=== PATIENT | female | born 1940 | race Caucasian/White ===

== ENCOUNTER 2021-08-29 10:40 | Inpatient (IN) | payer BC, MEDICARE ==
[~2021-08-29] VITALS: Ht 157.5 cm; Wt 59.0 kg
[2021-08-29] MEDS ORDERED: LEVOFLOXACIN 750MG PREMIX 150 ML IV ONE (11:15)
[2021-08-29 11:32] LABS: BASOPHILS % 0.6 % (0.0-2.0); EOSINOPHILS % 0.2 % (0.0-5.0); HEMATOCRIT. 31.4 % (36.0-48.0); HEMOGLOBIN. 10.1 g/dL (12.0-16.0); LYMPHOCYTES % 7.4 % (20.0-50.0); MEAN CORPUSCULAR VOLUME 74.7 fL (81.0-99.0); MEAN PLATELET VOLUME 9.3 fl (7.4-10.4); MONOCYTES % 5.8 % (2.0-8.0); PLATELET 372 x1000/uL (130-400); RED BLOOD CELL COUNT 4.21 mill/uL (4.2-5.4); RED CELL DISTRIBUTION WIDTH 18.7 % (11.6-14.6)
[2021-08-29 11:40] LABS: CHLORIDE 109 mEq/L (98-107)
[2021-08-29 12:00] LABS: BG BASE EXCESS -3.4 mmol/L (-2.0-2.0); BG CARBOXYHEMOGLOBIN 0.2 % (0.5-1.5); BG DEOXYHEMOGLOBIN 9.3 % (0.0-5.0); BG HCO3 ACT 20.7 mmol/L (22.0-26.0); BG METHEMOGLOBIN 0.1 % (0.0-1.5); BG OXYGEN SATURATION 90.7 % (92.0-98.5); BG OXYHEMOGLOBIN 90.4 % (94.0-97.0); BG PCO2 33.9 mmHg (35.0-45.0); BG PH 7.404 (7.350-7.450); BG PO2 66.2 mmHg (75.0-100.0); BG SAMPLE SITE RIGHT BRACHIAL; BG TOTAL HEMOGLOBIN 11.3 g/dL (12.0-18.0); BG VENT MODE MASK - NRB
[2021-08-29] MEDS ORDERED: POTASSIUM CHLORIDE INJ 40 MEQ in DEXT 5% WATER 250 ML IV SCH (14:00)
[2021-08-29] MEDS ORDERED: DEXTROSE 50% WATER 50ML SYRINGE IV PRN (16:30)
[2021-08-29] MEDS ORDERED: DIPHENHYDRAMINE 50MG/ML VIAL IV PRN ×2 (16:30)
[2021-08-29] MEDS ORDERED: IPRATROPIUM/ALBUTEROL 0.5-3(2.5)MG/3ML NEB NEB PRN (16:30)
[2021-08-29] MEDS ORDERED: ONDANSETRON HCL 4MG/2ML INJ IV PRN ×2 (16:30)
[2021-08-29] MEDS ORDERED: ACETAMINOPHEN 650MG SUPP PR PRN (16:30)
[2021-08-29] MEDS ORDERED: DEXT 5%/0.45% NACL 1000ML 1,000 ML IV SCH (16:30)
[2021-08-29] MEDS ORDERED: DEXT 5%/0.45% NACL KCL 40MEQ/L 1,000 ML IV SCH (17:00)
[2021-08-29] MEDS ORDERED: ENOXAPARIN 40MG/0.4ML SYR SUBCUT SCH (17:00)
[2021-08-29] MEDS: BLOOD SUGAR DIAGNOSTIC STRIP TEST SCH ×2 (17:00→20:50)
[2021-08-29] MEDS ORDERED: KCL 20MEQ/100ML PREMIX 100 ML IV SCH (17:00)
[2021-08-29] MEDS: INSULIN LISPRO 100 UNITS/ML SUBCUT SCH ×2 (18:20→21:00)
[2021-08-29 19:18] VITALS: BP 134/53
[2021-08-29] MEDS: KCL 20MEQ/100ML X 2 FOR TOTAL KCL 40MEQ/200ML IV SCH ×2 (19:30→20:47)
[2021-08-29 20:00] VITALS: BP 134/53
[2021-08-29] MEDS ORDERED: PNEUMOCOCCAL 23-VAL P-SAC VAC 0.5 ML IM ONE (20:45)
[2021-08-29] MEDS ORDERED: INFLUENZA VACCINE 05/PF 0.5 ML SYRINGE IM ONE (20:45)
[2021-08-30] VITALS: BP 104/62
[2021-08-30] MEDS ORDERED: APIX5TAB PO (00:31)
[2021-08-30] MEDS ORDERED: ESCI5SOL2 PO (00:34)
[2021-08-30] MEDS ORDERED: PENT400T16 MT (00:40)
[2021-08-30] MEDS ORDERED: METF-414 MT (00:40)
[2021-08-30] MEDS ORDERED: TRAZ-251 PO (00:40)
[2021-08-30] MEDS ORDERED: ALBU18HF2 IH (00:46)
[2021-08-30] MEDS: DEXT 5%/0.45% NACL KCL 40MEQ/L 1,000 ML IV SCH ×2 (03:25→20:47)
[2021-08-30] MEDS: BLOOD SUGAR DIAGNOSTIC STRIP TEST SCH ×4 (06:41→20:14)
[2021-08-30] MEDS: INSULIN LISPRO 100 UNITS/ML SUBCUT SCH ×4 (06:41→20:14)
[2021-08-30 07:01] LABS: BASOPHILS % 0.3 % (0.0-2.0); EOSINOPHILS % 0.4 % (0.0-5.0); HEMATOCRIT. 28.7 % (36.0-48.0); HEMOGLOBIN. 9.2 g/dL (12.0-16.0); LYMPHOCYTES % 8.1 % (20.0-50.0); MEAN CORPUSCULAR VOLUME 75.1 fL (81.0-99.0); MEAN PLATELET VOLUME 9.3 fl (7.4-10.4); MONOCYTES % 7.8 % (2.0-8.0); NEUTROPHILS % 83.4 % (40.0-76.0); PLATELET 298 x1000/uL (130-400); RED BLOOD CELL COUNT 3.83 mill/uL (4.2-5.4); RED CELL DISTRIBUTION WIDTH 18.5 % (11.6-14.6)
[2021-08-30 08:00] VITALS: BP 91/47
[2021-08-30 12:00] VITALS: BP 100/56
[2021-08-30 16:00] VITALS: BP 105/54
[2021-08-30] MEDS ORDERED: ENOXAPARIN 30MG/0.3ML SYR SUBCUT SCH (17:00)
[2021-08-30] MEDS ORDERED: LEVE500T98 MT (17:31)
[2021-08-30 20:00] VITALS: BP 125/61
[2021-08-30] MEDS ORDERED: ENOXAPARIN 60MG/0.6ML SYR SUBCUT SCH (20:00)
[2021-08-30] MEDS: DILTIAZEM HCL 5MG/ML 5ML VIAL IV PRN (20:33)
[2021-08-30] MEDS: LEVETIRACETAM 500MG PREMIX 100 ML IV SCH (20:37)
[2021-08-30] MEDS ORDERED: DIGOXIN 500MCG/2ML AMP IV NR ×2 (21:30→22:00)
[2021-08-30] MEDS ORDERED: METO100T16 PO (21:32)
[2021-08-30] MEDS ORDERED: METO100T16 MT (21:32)
[2021-08-30] MEDS: IPRATROPIUM/ALBUTEROL 0.5-3(2.5)MG/3ML NEB HHN SCH (21:40)
[2021-08-31] VITALS (7 sets, daily range): BP systolic 89–130; BP diastolic 58–74
[2021-08-31] MEDS: IPRATROPIUM/ALBUTEROL 0.5-3(2.5)MG/3ML NEB HHN SCH ×4 (02:45→21:20)
[2021-08-31] MEDS: BLOOD SUGAR DIAGNOSTIC STRIP TEST SCH ×4 (06:03→20:17)
[2021-08-31] MEDS: INSULIN LISPRO 100 UNITS/ML SUBCUT SCH ×4 (06:13→20:17)
[2021-08-31] MEDS: LEVETIRACETAM 500MG PREMIX 100 ML IV SCH ×2 (08:37→20:16)
[2021-08-31] MEDS: LEVOFLOXACIN 750MG PREMIX 150 ML IV SCH (15:48)
[2021-08-31] MEDS ORDERED: NALOXONE HCL 0.4MG/ML VIAL IV PRN (16:00)
[2021-08-31] MEDS ORDERED: DILTIAZEM HCL 60MG TABLET PO SCH (18:00)
[2021-08-31] MEDS: DEXT 5%/0.45% NACL KCL 40MEQ/L 1,000 ML IV SCH (18:39)
[2021-08-31] MEDS: DILTIAZEM HCL 5MG/ML 5ML VIAL IV SCH (18:41)
[2021-08-31] MEDS: ENOXAPARIN 60MG/0.6ML SYR SUBCUT SCH (20:16)
[2021-08-31] MEDS: DILTIAZEM HCL 5MG/ML 5ML VIAL IV PRN (22:54)
[2021-09-01] VITALS: BP 128/48
[2021-09-01] MEDS: IPRATROPIUM/ALBUTEROL 0.5-3(2.5)MG/3ML NEB HHN SCH ×4 (00:53→21:10)
[2021-09-01 04:00] VITALS: BP 139/77
[2021-09-01] MEDS: DILTIAZEM HCL 5MG/ML 5ML VIAL IV SCH ×4 (05:20→17:57)
[2021-09-01] MEDS: INSULIN LISPRO 100 UNITS/ML SUBCUT SCH ×4 (06:16→21:00)
[2021-09-01] MEDS: BLOOD SUGAR DIAGNOSTIC STRIP TEST SCH ×4 (06:16→21:23)
[2021-09-01 06:29] LABS: HEMATOCRIT. 27.9 % (36.0-48.0); HEMOGLOBIN. 8.9 g/dL (12.0-16.0); MEAN CORPUSCULAR HEMOGLOBIN 24.3 pg (28.0-32.0); MEAN CORPUSCULAR VOLUME 76.3 fL (81.0-99.0); MEAN PLATELET VOLUME 9.7 fl (7.4-10.4); PLATELET 325 x1000/uL (130-400); RED BLOOD CELL COUNT 3.65 mill/uL (4.2-5.4); RED CELL DISTRIBUTION WIDTH 18.8 % (11.6-14.6)
[2021-09-01 08:00] VITALS: BP 101/59
[2021-09-01] MEDS: LEVETIRACETAM 500MG PREMIX 100 ML IV SCH ×2 (08:50→21:24)
[2021-09-01] MEDS ORDERED: MAGNESIUM 1 G PREMIX 100 ML IV NR (10:30)
[2021-09-01 12:00] VITALS: BP 148/82
[2021-09-01 14:28] LABS: PLATELET ESTIMATE NORMAL
[2021-09-01] MEDS: DEXT 5%/0.45% NACL KCL 40MEQ/L 1,000 ML IV SCH (15:34)
[2021-09-01 16:00] VITALS: BP 125/44
[2021-09-01 20:00] VITALS: BP 115/48
[2021-09-01] MEDS: ENOXAPARIN 60MG/0.6ML SYR SUBCUT SCH (21:24)
[2021-09-02] VITALS: BP 109/59
[2021-09-02] MEDS: DILTIAZEM HCL 5MG/ML 10ML VIAL IV SCH ×3 (00:52→13:17)
[2021-09-02] MEDS: IPRATROPIUM/ALBUTEROL 0.5-3(2.5)MG/3ML NEB HHN SCH ×4 (02:36→21:55)
[2021-09-02 04:00] VITALS: BP 106/57
[2021-09-02] MEDS: BLOOD SUGAR DIAGNOSTIC STRIP TEST SCH ×4 (06:11→21:00)
[2021-09-02] MEDS: INSULIN LISPRO 100 UNITS/ML SUBCUT SCH ×4 (06:11→21:00)
[2021-09-02 08:00] VITALS: BP 108/49
[2021-09-02] MEDS: LEVETIRACETAM 500MG PREMIX 100 ML IV SCH ×2 (08:40→21:27)
[2021-09-02] MEDS: DEXT 5%/0.45% NACL KCL 40MEQ/L 1,000 ML IV SCH (11:30)
[2021-09-02 12:00] VITALS: BP 110/57
[2021-09-02] MEDS: LEVOFLOXACIN 750MG PREMIX 150 ML IV SCH (13:16)
[2021-09-02 16:00] VITALS: BP 130/52
[2021-09-02] MEDS: DILTIAZEM HCL 60MG TABLET NG SCH (18:36)
[2021-09-02 20:00] VITALS: BP 115/55
[2021-09-02] MEDS: ENOXAPARIN 60MG/0.6ML SYR SUBCUT SCH (21:27)
[2021-09-03] VITALS: BP 116/50
[2021-09-03] MEDS: IPRATROPIUM/ALBUTEROL 0.5-3(2.5)MG/3ML NEB HHN SCH ×4 (03:31→20:20)
[2021-09-03 04:00] VITALS: BP 116/56
[2021-09-03] MEDS: DILTIAZEM HCL 60MG TABLET NG SCH ×4 (06:00→17:02)
[2021-09-03] MEDS: DEXT 5%/0.45% NACL KCL 40MEQ/L 1,000 ML IV SCH (06:09)
[2021-09-03] MEDS: BLOOD SUGAR DIAGNOSTIC STRIP TEST SCH ×4 (06:44→21:53)
[2021-09-03] MEDS: INSULIN LISPRO 100 UNITS/ML SUBCUT SCH ×4 (06:45→21:00)
[2021-09-03 08:00] VITALS: BP 118/56
[2021-09-03] MEDS: LEVETIRACETAM 500MG PREMIX 100 ML IV SCH ×2 (08:27→21:42)
[2021-09-03] MEDS: FUROSEMIDE 20MG/2ML VIAL IVP SCH (09:10)
[2021-09-03 12:00] VITALS: BP 131/55
[2021-09-03 12:31] LABS: CHLORIDE 115 mEq/L (98-107)
[2021-09-03 16:00] VITALS: BP 119/86
[2021-09-03] MEDS: ENOXAPARIN 60MG/0.6ML SYR SUBCUT SCH (17:02)
[2021-09-03 20:09] VITALS: BP 134/49
[2021-09-03] MEDS: METOPROLOL TARTRATE 25MG TABLET PO SCH (21:42)
[2021-09-03 22:04] LABS: BASOPHILS % 0.5 % (0.0-2.0); EOSINOPHILS % 4.7 % (0.0-5.0); HEMATOCRIT. 30.5 % (36.0-48.0); HEMOGLOBIN. 9.4 g/dL (12.0-16.0); LYMPHOCYTES % 11.5 % (20.0-50.0); MEAN CORPUSCULAR HEMOGLOBIN 23.8 pg (28.0-32.0); MEAN CORPUSCULAR VOLUME 76.9 fL (81.0-99.0); MONOCYTES % 11.5 % (2.0-8.0); NEUTROPHILS % 71.8 % (40.0-76.0); PLATELET 316 x1000/uL (130-400); RED BLOOD CELL COUNT 3.97 mill/uL (4.2-5.4); RED CELL DISTRIBUTION WIDTH 19.1 % (11.6-14.6)
[2021-09-04 00:22] VITALS: BP 124/50
[2021-09-04] MEDS: IPRATROPIUM/ALBUTEROL 0.5-3(2.5)MG/3ML NEB HHN SCH ×5 (02:09→23:35)
[2021-09-04] MEDS: DEXT 5%/0.45% NACL KCL 40MEQ/L 1,000 ML IV SCH ×2 (03:00→20:35)
[2021-09-04 04:45] VITALS: BP 119/55
[2021-09-04] MEDS: ENOXAPARIN 60MG/0.6ML SYR SUBCUT SCH ×2 (06:28→17:37)
[2021-09-04] MEDS: BLOOD SUGAR DIAGNOSTIC STRIP TEST SCH ×4 (06:29→20:36)
[2021-09-04] MEDS: INSULIN LISPRO 100 UNITS/ML SUBCUT SCH ×4 (06:30→20:36)
[2021-09-04] MEDS: DILTIAZEM HCL 60MG TABLET NG SCH ×5 (06:31→23:32)
[2021-09-04 07:40] LABS: BASOPHILS % 0.5 % (0.0-2.0); HEMOGLOBIN. 9.5 g/dL (12.0-16.0); LYMPHOCYTES % 8.1 % (20.0-50.0); MEAN CORPUSCULAR HEMOGLOBIN 23.9 pg (28.0-32.0); MEAN CORPUSCULAR VOLUME 75.9 fL (81.0-99.0); MEAN PLATELET VOLUME 9.6 fl (7.4-10.4); MONOCYTES % 10.6 % (2.0-8.0); NEUTROPHILS % 74.8 % (40.0-76.0); PLATELET 332 x1000/uL (130-400); RED BLOOD CELL COUNT 3.95 mill/uL (4.2-5.4); RED CELL DISTRIBUTION WIDTH 19.1 % (11.6-14.6)
[2021-09-04 08:00] VITALS: BP 119/46
[2021-09-04] MEDS: METOPROLOL TARTRATE 25MG TABLET PO SCH ×2 (09:00→20:34)
[2021-09-04] MEDS: FUROSEMIDE 20MG/2ML VIAL IVP SCH (09:54)
[2021-09-04] MEDS: LEVETIRACETAM 500MG PREMIX 100 ML IV SCH ×2 (09:55→20:35)
[2021-09-04] MEDS: MORPHINE SULFATE 2 MG/ML CPJ (NOT FOR IM USE) IV PRN ×2 (11:28→19:58)
[2021-09-04 12:00] VITALS: BP 117/60
[2021-09-04] MEDS: LEVOFLOXACIN 750MG PREMIX 150 ML IV SCH (13:09)
[2021-09-04 16:00] VITALS: BP 121/58
[2021-09-04 20:00] VITALS: BP 123/82
[2021-09-04] MEDS: TRAZODONE HCL 50MG TABLET PO SCH (20:34)
[2021-09-05] VITALS: BP 94/57
[2021-09-05] MEDS: IPRATROPIUM/ALBUTEROL 0.5-3(2.5)MG/3ML NEB HHN SCH ×4 (01:45→21:33)
[2021-09-05 04:00] VITALS: BP 121/61
[2021-09-05] MEDS: DILTIAZEM HCL 60MG TABLET NG SCH ×3 (05:34→17:53)
[2021-09-05] MEDS: ENOXAPARIN 60MG/0.6ML SYR SUBCUT SCH ×2 (05:35→17:53)
[2021-09-05] MEDS: BLOOD SUGAR DIAGNOSTIC STRIP TEST SCH ×4 (06:17→20:00)
[2021-09-05] MEDS: INSULIN LISPRO 100 UNITS/ML SUBCUT SCH ×4 (06:17→19:59)
[2021-09-05 08:00] VITALS: BP 114/52
[2021-09-05] MEDS: FUROSEMIDE 20MG/2ML VIAL IVP SCH (08:54)
[2021-09-05] MEDS: LEVETIRACETAM 500MG PREMIX 100 ML IV SCH ×2 (08:54→19:59)
[2021-09-05] MEDS: METOPROLOL TARTRATE 25MG TABLET PO SCH ×2 (08:55→19:59)
[2021-09-05 12:00] VITALS: BP 104/42
[2021-09-05] MEDS: ACETAMINOPHEN 650MG SUPP PR PRN (12:18)
[2021-09-05] MEDS ORDERED: TRAMADOL 50MG TABLET PO PRN (13:45)
[2021-09-05 16:00] VITALS: BP 123/65
[2021-09-05] MEDS: DEXT 5%/0.45% NACL KCL 40MEQ/L 1,000 ML IV SCH (19:00)
[2021-09-05] MEDS: TRAZODONE HCL 50MG TABLET PO SCH (19:58)
[2021-09-05 20:00] VITALS: BP 95/45
[2021-09-06] VITALS: BP 102/47
[2021-09-06] MEDS: IPRATROPIUM/ALBUTEROL 0.5-3(2.5)MG/3ML NEB HHN SCH ×3 (02:31→14:05)
[2021-09-06 04:00] VITALS: BP 102/45
[2021-09-06] MEDS: DILTIAZEM HCL 60MG TABLET NG SCH ×4 (06:00→17:58)
[2021-09-06] MEDS: ENOXAPARIN 60MG/0.6ML SYR SUBCUT SCH ×2 (06:31→17:57)
[2021-09-06] MEDS: BLOOD SUGAR DIAGNOSTIC STRIP TEST SCH ×4 (06:33→21:00)
[2021-09-06] MEDS: INSULIN LISPRO 100 UNITS/ML SUBCUT SCH ×4 (06:33→21:00)
[2021-09-06 08:00] VITALS: BP 118/77
[2021-09-06] MEDS: METOPROLOL TARTRATE 25MG TABLET PO SCH ×2 (09:02→21:00)
[2021-09-06] MEDS: LEVETIRACETAM 500MG PREMIX 100 ML IV SCH ×2 (09:02→21:15)
[2021-09-06] MEDS: FUROSEMIDE 20MG/2ML VIAL IVP SCH (09:02)
[2021-09-06 12:00] VITALS: BP 110/65
[2021-09-06 13:35] LABS: BG BASE EXCESS 1.3 mmol/L (-2.0-2.0); BG CARBOXYHEMOGLOBIN 0.3 % (0.5-1.5); BG DEOXYHEMOGLOBIN 7.1 % (0.0-5.0); BG FRACTION INSPIRED OXYGEN 21; BG METHEMOGLOBIN 0.2 % (0.0-1.5); BG OXYGEN SATURATION 92.9 % (92.0-98.5); BG OXYHEMOGLOBIN 92.4 % (94.0-97.0); BG PCO2 35.9 mmHg (35.0-45.0); BG PO2 67.2 mmHg (75.0-100.0); BG SAMPLE SITE RIGHT BRACHIAL; BG TOTAL HEMOGLOBIN 10.2 g/dL (12.0-18.0); BG VENT MODE ROOM AIR
[2021-09-06 16:00] VITALS: BP 121/51
[2021-09-06 20:00] VITALS: BP 107/51
[2021-09-06] MEDS: TRAZODONE HCL 50MG TABLET PO SCH (21:00)
[2021-09-07] VITALS: BP 134/68
[2021-09-07 04:00] VITALS: BP 135/63
[2021-09-07] MEDS: ENOXAPARIN 60MG/0.6ML SYR SUBCUT SCH ×2 (05:59→18:26)
[2021-09-07] MEDS: DILTIAZEM HCL 60MG TABLET NG SCH ×4 (05:59→18:26)
[2021-09-07] MEDS: BLOOD SUGAR DIAGNOSTIC STRIP TEST SCH ×4 (06:00→20:43)
[2021-09-07] MEDS: INSULIN LISPRO 100 UNITS/ML SUBCUT SCH ×4 (06:00→20:28)
[2021-09-07 08:00] VITALS: BP 133/52
[2021-09-07] MEDS: FUROSEMIDE 20MG/2ML VIAL IVP SCH (08:20)
[2021-09-07] MEDS: LEVETIRACETAM 500MG PREMIX 100 ML IV SCH ×2 (08:20→20:30)
[2021-09-07] MEDS: ACETAMINOPHEN 650MG SUPP PR PRN (08:21)
[2021-09-07] MEDS: METOPROLOL TARTRATE 25MG TABLET PO SCH ×2 (09:00→20:43)
[2021-09-07] MEDS: IPRATROPIUM/ALBUTEROL 0.5-3(2.5)MG/3ML NEB HHN SCH ×3 (09:15→20:42)
[2021-09-07 12:00] VITALS: BP 107/48
[2021-09-07 16:00] VITALS: BP 101/33
[2021-09-07] MEDS: TRAZODONE HCL 50MG TABLET PO SCH (20:43)
[2021-09-07 21:09] VITALS: BP 116/46
== END 2021-09-07 22:24 | disposition home health service (06) | DRG 193 ==
LOC: ER 10:44 → EDBD 10:44 → 7EST 13:34 → EDBEDREQ 13:41 → ENRESERV 16:47
PROVIDERS: ADMIT Internal Medicine; ATTEND Internal Medicine
DX: J18.9 Pneumonia, unspecified organism (principal); J96.01 Acute respiratory failure with hypoxia; G45.9 Transient cerebral ischemic attack, unspecified; I48.20 Chronic atrial fibrillation, unspecified; J44.0 Chronic obstructive pulmonary disease with (acute) lower respiratory infection; I50.30 Unspecified diastolic (congestive) heart failure; R65.10 Systemic inflammatory response syndrome (SIRS) of non-infectious origin without acute organ dysfunction; E11.9 Type 2 diabetes mellitus without complications; F01.50 Vascular dementia, unspecified severity, without behavioral disturbance, psychotic disturbance, mood disturbance, and anxiety; I11.0 Hypertensive heart disease with heart failure; R62.7 Adult failure to thrive; I69.311 Memory deficit following cerebral infarction; Z66 Do not resuscitate; I27.20 Pulmonary hypertension, unspecified; E87.6 Hypokalemia; R13.10 Dysphagia, unspecified; Z20.822 Contact with and (suspected) exposure to COVID-19; Z88.0 Allergy status to penicillin; Z91.041 Radiographic dye allergy status; Z79.899 Other long term (current) drug therapy; Z74.01 Bed confinement status; Z79.01 Long term (current) use of anticoagulants; Z87.891 Personal history of nicotine dependence; Z68.23 Body mass index [BMI] 23.0-23.9, adult
CPT/HCPCS: 36415; 36600; 71045; 73030; 80048; 80053; 82375; 82805; 82962; 83605; 83735; 83880; 84145; 84484; 85025; 87426; 90686; 90732; 92610; 93005; 93306; 93970; 94640; 99285; C1893; J1160; J1650; J1815; J1940; J1953; J1956; J2270; J3475; J3480; J3490; J7040; J7060